=== PATIENT | female | born 1975 | race Two or more races ===

== ENCOUNTER 2022-01-31 21:48 | Emergency (ER) | payer MEDICAID, OTHER ==
[~2022-01-31] VITALS: Ht 154.9 cm; Wt 76.7 kg
[2022-01-31] MEDS ORDERED: PRED20TA2 PO (23:09)
[2022-01-31] MEDS ORDERED: MORPHINE SULFATE INJECTION 2 MG/ML SYRG IM ONE (23:15)
[2022-01-31] MEDS ORDERED: ONDANSETRON ODT 4 MG TAB PO ONE (23:15)
[2022-01-31] MEDS ORDERED: MORPHINE SULFATE 4 MG/ML SYR/VIAL ONE (23:21)
[2022-01-31 23:28] VITALS: BP 150/90
== END 2022-02-01 00:07 | disposition home or self-care (01) ==
LOC: ER 21:51
DX: M77.01 Medial epicondylitis, right elbow (principal); Z79.899 Other long term (current) drug therapy
CPT/HCPCS: 96372; 99283; J2270; Q0162